=== PATIENT | female | born 1950 | race Caucasian/White ===

== ENCOUNTER 2022-08-04 11:30 | Outpatient (RCR) | payer MEDICARE, BC, SELFPAY ==
[2022-07-31 14:38] VITALS: BP 126/75; PULSE 67; RESP 16; TEMP 36.2; O2SAT 99
[2022-07-31] MEDS: ERTAPENEM 1 GM in 0.9 % SODIUM CHLORIDE 100 ml 100 ML IVPB (14:59)
[2022-08-01] MEDS: ERTAPENEM 1 GM in 0.9 % SODIUM CHLORIDE 100 ml 100 ML IVPB (14:22)
[2022-08-01 14:44] VITALS: BP 142/72; PULSE 55; RESP 16; O2SAT 98
[2022-08-03 13:07] VITALS: BP 164/74; PULSE 54; RESP 16; TEMP 36.2; O2SAT 98
[2022-08-03] MEDS: ERTAPENEM 1 GM in 0.9 % SODIUM CHLORIDE 100 ml 100 ML IVPB (13:43)
[2022-08-04 11:41] VITALS: BP 135/71; PULSE 59; RESP 16; TEMP 36.6; O2SAT 97
[2022-08-04] MEDS: ERTAPENEM 1 GM in 0.9 % SODIUM CHLORIDE 100 ml 100 ML IVPB (11:56)
== END 2023-01-27 23:59 | disposition home or self-care (01) ==
LOC: CCIC 11:30
PROVIDERS: PCP Family Medicine; Referring Provider Family Medicine; Visit Provider Clinical Nurse Specialist
DX: K57.32 Diverticulitis of large intestine without perforation or abscess without bleeding (principal)
CPT/HCPCS: 96365; 99211; J1335

== ENCOUNTER 2024-11-20 09:33 | Outpatient (CLI) | payer MEDICARE, BC, SELFPAY | END 2024-11-20 09:34 | disposition home or self-care (01) | LOC: NFLDREF 09:33 | PROVIDERS: PCP Family Medicine; Visit Provider Obstetrics & Gynecology | DX: N39.41 Urge incontinence (principal) | CPT/HCPCS: 87086 ==